=== PATIENT | female | born 2000 | race Caucasian/White ===

== ENCOUNTER 2019-03-20 18:48 | Emergency (ER) | payer OTHER ==
[~2019-03-20] VITALS: Ht 170.2 cm; Wt 93.0 kg
[2019-03-20 18:55] VITALS: BP 121/61
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
--- NOTE | 2019-03-20 19:15 | NUR ---
Pt report given to NELI Holloway. Transfer of care at this time.
--- NOTE | 2019-03-20 19:17 | NUR ---
RECIEVED REPORT FROM NELI VILLAGRAN. ASSUMED CARE AT THIS TIME.
== END 2019-03-20 20:26 | disposition home or self-care (01) ==
LOC: MED 18:48
DX: M25.511 Pain in right shoulder (principal); H92.03 Otalgia, bilateral; F17.210 Nicotine dependence, cigarettes, uncomplicated
CPT/HCPCS: 81002; 81025; 99283